=== PATIENT | male | born 1945 | race Hispanic/Latino ===

== ENCOUNTER 2021-08-15 13:19 | Emergency (ER) | payer MEDICARE ==
[2021-08-16 05:13] LABS: Basophils % (Auto) 0.4 % (0.0-1.8); Eosinophils # (Auto) 0.2 K/mm3 (0.0-0.4); Eosinophils % (Auto) 2.5 % (0.0-4.3); Hematocrit 40.8 % (35.5-45.6); Hemoglobin 13.6 gm/dl (11.8-15.2); Lymphocytes # (Auto) 1.3 K/mm3 (1.2-5.4); Lymphocytes % (Auto) 20.4 % (13.4-35.0); Mean Corpuscular HGB Conc 33 % (32-34); Mean Corpuscular Volume 95 fl (84-94); Monocytes # (Auto) 0.9 K/mm3 (0.0-0.8); Monocytes % (Auto) 13.4 % (0.0-7.3); Platelet Count 215 K/mm3 (140-440); Red Cell Distribution Width 13.5 % (13.2-15.2)
[2021-08-16 05:27] LABS: Albumin 4.2 g/dL (3.9-5)
[2021-08-16 05:55] LABS: Bilirubin,Urine NEG (Negative); Blood,Urine NEG (Negative); Color,Urine Straw (Yellow); Protein,Urine <15 mg/dL mg/dL (Negative); RBC,Urine < 1.0 /HPF (0.0-6.0); Urobilinogen,Urine < 2.0 mg/dL (<2.0); WBC,Urine < 1.0 /HPF (0.0-6.0)
--- NOTE | 2021-08-16 06:44 | Emergency Department Report ---
ED Abdominal Pain HPI - General Chief Complaint: Abdominal Pain Stated Complaint: ABD PAIN Time Seen by Provider: 08/16/21 06:05 Source: patient, EMS Mode of arrival: Ambulatory Limitations: No Limitations - History of Present Illness Initial Comments: Patient is a 76-year-old male sent from rehab/detox facility for evaluation of generalized abdominal pain. He reports that his symptoms have been going on for the past several months. States that he was sent for evaluation of possible occult GI bleed due to his history of alcoholism. He states that his stools are usually brown however sometimes are slightly dark. He denies any nausea or vomiting. No fever or chills. Severity scale (0 -10): 5 - Related Data Previous Rx's Medication Instructions Recorded Last Taken Type bisacodyL [Dulcolax] 5 mg PO DAILY PRN #5 tab 08/16/21 Unknown Rx Allergies Allergy/AdvReac Type Severity Reaction Status Date / Time No Known Allergies Allergy Verified 08/15/21 13:27 ED Review of Systems ROS: Stated complaint: ABD PAIN Other details as noted in HPI Constitutional: denies: chills, fever Respiratory: denies: cough, shortness of breath, wheezing Cardiovascular: denies: chest pain, palpitations Gastrointestinal: abdominal pain, melena Skin: denies: rash, lesions Neurological: denies: headache, weakness, paresthesias Psychiatric: denies: anxiety, depression ED Past Medical Hx - Past Medical History Previous Medical History?: No - Surgical History Additional Surgical History: kidney removal - Medications Home Medications: Home Medications Medication Instructions Recorded Confirmed Last Taken Type bisacodyL [Dulcolax] 5 mg PO DAILY PRN #5 tab 08/16/21 Unknown Rx ED Physical Exam - General Limitations: No Limitations General appearance: alert, in no apparent distress - Head Head exam: Present: atraumatic, normocephalic - Neck Neck exam: Present: normal inspection - Respiratory Respiratory exam: Present: normal lung sounds bilaterally. Absent: respiratory distress - Cardiovascular Cardiovascular Exam: Present: regular rate, normal rhythm. Absent: systolic murmur, diastolic murmur, rubs, gallop - GI/Abdominal GI/Abdominal exam: Present: soft, normal bowel sounds. Absent: distended, tenderness - Rectal Rectal exam: Present: normal inspection, normal rectal tone, other (There is palpable solid/formed stool present in the rectal vault. Light brown in color) - Neurological Exam Neurological exam: Present: alert, oriented X3, CN II-XII intact - Psychiatric Psychiatric exam: Present: normal affect, normal mood - Skin Skin exam: Present: warm, dry, intact, normal color ED Course Vital Signs 08/15/21 08/16/21 08/16/21 13:23 04:15 04:30 Temperature 98.4 F Pulse Rate 72 117 H 69 Respiratory 16 16 13 Rate Blood Pressure 157/81 Blood Pressure 156/83 [Left] O2 Sat by Pulse 98 96 Oximetry 08/16/21 08/16/21 08/16/21 04:46 04:51 05:00 Temperature Pulse Rate 66 70 Respiratory 18 20 Rate Blood Pressure 157/81 132/75 Blood Pressure [Left] O2 Sat by Pulse 96 99 95 Oximetry 08/16/21 08/16/21 08/16/21 05:16 05:30 05:46 Temperature Pulse Rate 71 69 61 Respiratory 14 20 18 Rate Blood Pressure 132/75 138/84 138/84 Blood Pressure [Left] O2 Sat by Pulse 98 96 97 Oximetry 08/16/21 08/16/21 08/16/21 06:00 06:16 06:30 Temperature Pulse Rate 59 L 60 72 Respiratory 15 15 20 Rate Blood Pressure 143/89 143/89 152/85 Blood Pressure [Left] O2 Sat by Pulse 98 97 97 Oximetry 08/16/21 08/16/21 08/16/21 06:46 07:00 07:16 Temperature Pulse Rate 75 61 88 Respiratory 24 14 20 Rate Blood Pressure 152/85 159/85 159/85 Blood Pressure [Left] O2 Sat by Pulse 98 97 96 Oximetry 08/16/21 08/16/21 08/16/21 07:30 07:46 08:00 Temperature Pulse Rate 64 65 Respiratory 16 Rate Blood Pressure 145/79 145/79 164/87 Blood Pressure [Left] O2 Sat by Pulse 95 95 97 Oximetry ED Medical Decision Making - Lab Data Result diagrams: 08/16/21 04:57 08/16/21 04:57 - Medical Decision Making Labs grossly unremarkable. Specifically Hemoccult is negative. X-ray of abdomen reveals nonspecific bowel gas pattern with constipation. I discussed results with patient. Will discharge with prescription for Dulcolax stool softener. Critical care attestation.: If time is entered above; I have spent that time in minutes in the direct care o f this critically ill patient, excluding procedure time. ED Disposition Clinical Impression: Constipation Disposition: 01 HOME / SELF CARE / HOMELESS Is pt being admited?: No Condition: Stable Instructions: Constipation, Adult, High-Fiber Diet Referrals: NISHA CRAFT MD [Primary Care Provider] - 3-5 Days Time of Disposition: 08:21
--- NOTE | 2021-08-16 08:06 | XRay Report ---
ABDOMEN 1 VIEW 08/16/2021 7:41 AM INDICATION / CLINICAL INFORMATION: Abdominal pain. COMPARISON: None available. FINDINGS: TUBES / LINES: None. BOWEL GAS PATTERN: Nonspecific bowel gas pattern. FREE AIR / EXTRALUMINAL GAS: None. ADDITIONAL FINDINGS: No significant additional findings. IMPRESSION: 1. Nonspecific bowel gas pattern with constipation Signer Name: Lan Felton MD Signed: 08/16/2021 8:02 AM Workstation Name: [id number]
[2021-08-16 09:54] VITALS: BP 135/65
== END 2021-08-16 09:54 ==
LOC: ED 13:19
DX: K59.00 Constipation, unspecified (principal)
CPT/HCPCS: 36415; 74018; 80053; 81001; 82270; 85025; 99284